=== PATIENT | female | born 1935 | race Caucasian/White ===

== ENCOUNTER 2018-12-29 11:57 | Emergency (ER) | payer BC ==
[~2018-12-29] VITALS: Ht 157.5 cm; Wt 72.6 kg
--- NOTE | 2018-12-29 12:03 | NUR ---
Pt. ambulated into ED w/ c/o unrelenting epistaxis x 20 min., pt. on Xeralto 15mg daily for A-fib., A/Ox4, RR even and unlabored, speaks in clear and complete sentences, at bedside, bed in low position,
--- NOTE | 2018-12-29 12:08 | NUR ---
at bedside for MSE
--- NOTE | 2018-12-29 12:19 | NUR ---
Nose clamp applied, yankeur suction provided, bleeding appears to be stopping w/ direct pressure w/ nose clamp,
--- NOTE | 2018-12-29 13:25 | NUR ---
Patient discharged to home in stable conditon. Written and verbal after care instructions given. Patient verbalizes understanding of instructions. Pt. d/c per MD order, d/c papers signed, all belongings w/ pt., ID band removed, ambulated off unit w/ shae gait, NAD
== END 2018-12-29 13:28 | disposition home or self-care (01) ==
LOC: ER 11:59
DX: R04.0 Epistaxis (principal); I48.91 Unspecified atrial fibrillation
CPT/HCPCS: 30901; A4663

== ENCOUNTER 2019-01-05 22:31 | Emergency (ER) | payer MEDICARE, BC ==
[~2019-01-05] VITALS: Ht 162.6 cm; Wt 62.6 kg
--- NOTE | 2019-01-05 22:42 | NUR ---
Patient ambulated with stable gait. A/Ox4. Speech is clear, speaks in complete sentences. 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 Patient was seen here about a week ago for the same issue. Patien is on Xarelto for treatment of aFib. Patient denies taking any new medication other than Doxycycline antibiotics prophylactically prior to cyst removal on her scalp. Respiratory even and unlabored, no cough no sob. No GI/ distress Patient in bed at lowst position sr upx2, call light within reach. Fall precautions implemented per protocol.
--- NOTE | 2019-01-05 22:51 | NUR ---
ERMD at bedside for MSE
--- NOTE | 2019-01-05 23:27 | NUR ---
Patient discharged to home in stable conditon. Written and verbal after care instructions given. Patient verbalizes understanding of instructions. Patient ambulated with stable gait.
== END 2019-01-05 23:38 | disposition home or self-care (01) ==
LOC: ER 22:33
DX: R04.0 Epistaxis (principal); I48.91 Unspecified atrial fibrillation
CPT/HCPCS: A4663

== ENCOUNTER 2019-02-15 10:03 | Emergency (ER) | payer MEDICARE, BC ==
[~2019-02-15] VITALS: Ht 162.6 cm; Wt 63.5 kg
--- NOTE | 2019-02-15 10:12 | NUR ---
in room 2b, c/o nose bleeding since 1 hour ago
--- NOTE | 2019-02-15 10:14 | NUR ---
seen by dr Todd
--- NOTE | 2019-02-15 10:26 | NUR ---
ice pack applied over the nose.
[2019-02-15 10:59] VITALS: BP 116/72
--- NOTE | 2019-02-15 11:00 | NUR ---
exitcare and homegoing instructions given and signed by patient. discharged. family with patient
== END 2019-02-15 11:01 | disposition home or self-care (01) ==
LOC: ER 10:07
DX: R04.0 Epistaxis (principal); I48.91 Unspecified atrial fibrillation
CPT/HCPCS: A4663

== ENCOUNTER 2020-02-04 11:33 | Inpatient (IN) | payer MEDICARE, BC ==
[~2020-02-04] VITALS: Ht 162.6 cm; Wt 62.1 kg
--- NOTE | 2020-02-04 11:50 | NUR ---
Dr. Love at bedside for MSE
--- NOTE | 2020-02-04 11:55 | NUR ---
Patient ambulating with steady gait. A&O x4. c/o head inury s/p GLF. patient states that she was gardening and turned faster than expected and fell and hit her head on a pale. some swelling noted above left eye and discoloration on the nose. Speech is clear and able to make needs known / follow commands. Breathing even and unlabored. no cough or SOB noted. denies any CP, N / V /D, CU[place], Blurred vision. safety precautions implemented, bed low, s/r up x2
[2020-02-04] MEDS ORDERED: METO-356 PO (12:04)
[2020-02-04] MEDS ORDERED: LEVO100T PO (12:04)
[2020-02-04] MEDS ORDERED: VITAMIN D3 (12:04)
[2020-02-04] MEDS ORDERED: CALC-1026 PO (12:04)
[2020-02-04] MEDS ORDERED: FISH OIL (12:04)
[2020-02-04] MEDS ORDERED: PRAV10TA40 PO (12:04)
[2020-02-04] MEDS ORDERED: RIVA10TA PO (12:04)
[2020-02-04] MEDS ORDERED: ACETAMINOPHEN ES 500 MG TABLET PO ONE (12:15)
[2020-02-04 12:24] LABS: BASOPHILS % (AUTO) 0.5 % (0.0-2.0); EOSINOPHILS # (AUTO) 0.1 K/uL (0.0-0.7); EOSINOPHILS % (AUTO) 0.9 % (0.0-7.0); HEMATOCRIT 41.5 % (31.2-41.9); HEMOGLOBIN 13.6 g/dL (10.9-14.3); LYMPHOCYTES # (AUTO) 1.7 K/uL (20.0-40.0); LYMPHOCYTES % (AUTO) 23.4 % (20.5-51.5); MEAN CORPUSCULAR HEMOGLOBIN 28.4 uug (24.7-32.8); MEAN CORPUSCULAR HGB CONC 33 g/dL (32.3-35.6); MONOCYTES # (AUTO) 0.5 K/uL (2.0-10.0); MONOCYTES % (AUTO) 7.3 % (0.0-11.0); NEUTROPHILS % (AUTO) 67.9 % (38.5-71.5); PLATELET COUNT (AUTO) 197 K/uL (179-408); RED BLOOD CELL COUNT(AUTO) 4.77 MIL/uL (3.63-4.92); WHITE BLOOD COUNT (AUTO) 7.3 K/uL (3.8-11.8)
[2020-02-04] MEDS ORDERED: ACETAMINOPHEN ES 500 MG TABLET ONE (12:25)
--- NOTE | 2020-02-04 12:27 | NUR ---
Patient taken to CT scan in stable condition
[2020-02-04 12:34] LABS: CREATININE 0.9 mg/dL (0.6-1.3); POTASSIUM 4.2 mmol/L (3.5-5.1)
[2020-02-04 12:46] LABS: BILIRUBIN,DIRECT 0.2 mg/dL (0.0-0.2); BILIRUBIN,TOTAL 0.8 mg/dL (0.2-1.0); TOTAL PROTEIN, SERUM 7.1 g/dL (6.4-8.2)
--- NOTE | 2020-02-04 13:39 | NUR ---
Pt. admitted to [facility] , under care of Dr. Morris Wu Belongs List completed
[2020-02-04] MEDS ORDERED: ZOLPIDEM 5 MG TABLET PO PRN (14:15)
[2020-02-04] MEDS ORDERED: ONDANSETRON 4 MG/2 ML VIAL IV PRN (14:15)
[2020-02-04] MEDS ORDERED: HYDROCODONE/APAP 5-325MG TABLET PO PRN (14:15)
[2020-02-04] MEDS ORDERED: Z GUARD REMEDY PASTE 57 GM TUBE TOP PRN (14:15)
[2020-02-04] MEDS ORDERED: MAGNESIUM HYDROXIDE 30 ML LIQUID UDC PO PRN (14:15)
[2020-02-04] MEDS ORDERED: ACETAMINOPHEN 325 MG TABLET PO PRN (14:15)
[2020-02-04] MEDS ORDERED: IV LACTATED RINGERS SOLUTION 1,000 ML IV PRN (14:45)
[2020-02-04 15:57] VITALS: BP 131/83
[2020-02-04] MEDS ORDERED: METOPROLOL SUCCINATE XL 25 MG TAB.SR.24H PO SCH (17:00)
[2020-02-04] MEDS: IV LACTATED RINGERS SOLUTION 1,000 ML IV SCH (18:45)
--- NOTE | 2020-02-04 20:00 | NUR ---
Received patient awake and alert in bed, no signs of acute distress noted. Patient is A/Ox4. IVF running on the left forearm, no s/s of infection or infiltration. Noted patient with bruising and swelling to the left side of the face s/p fall. No complaints of pain at this time. Vitals WNL. Safety measures initiated. Bed is low and locked, call light within reach. Will continue to monitor.
[2020-02-04 20:15] VITALS: BP 126/66
[2020-02-04] MEDS: METOPROLOL TARTRATE 25 MG TABLET PO SCH (20:33)
[2020-02-04] MEDS: RIVAROXABAN 15 MG TABLET PO SCH (21:00)
[2020-02-04] MEDS: ATORVASTATIN 10 MG TABLET PO SCH (21:00)
[2020-02-04] MEDS ORDERED: ATORVASTATIN 10 MG TABLET PO SCH (21:00)
[2020-02-04] MEDS ORDERED: RIVAROXABAN 10 MG TABLET PO SCH (21:00)
--- NOTE | 2020-02-04 21:10 | NUR ---
Patient says she take pravastatin. Medication was converted to atorvastatin, explained that it has the same effects, but patient said she has never taken it before and does not want to risk any side effects because when she used to be on 10mg of pravastatin she would have muscle spasms so it was decreased to 5mg, the atorvastatin is also 5mg, but she still does not want to take it. Also, xarelto was held, endorsed to Morris Wu DNP, that head CT was neg for hemorrhage, but patient noted with swelling and bruising to both sides of the face, patient stated it was initially only on one side so the decision was made to hold tonight dose and resume tmw.
[2020-02-05 00:06] VITALS: BP 126/78
[2020-02-05 05:56] LABS: BASOPHILS % (AUTO) 0.6 % (0.0-2.0); EOSINOPHILS # (AUTO) 0.1 K/uL (0.0-0.7); EOSINOPHILS % (AUTO) 1.4 % (0.0-7.0); HEMATOCRIT 42.4 % (31.2-41.9); LYMPHOCYTES # (AUTO) 2.5 K/uL (20.0-40.0); LYMPHOCYTES % (AUTO) 40.3 % (20.5-51.5); MEAN CORPUSCULAR HEMOGLOBIN 28.9 uug (24.7-32.8); MEAN CORPUSCULAR HGB CONC 33 g/dL (32.3-35.6); MEAN CORPUSCULAR VOLUME 87.5 fL (75.5-95.3); MONOCYTES # (AUTO) 0.6 K/uL (2.0-10.0); MONOCYTES % (AUTO) 9.7 % (0.0-11.0); PLATELET COUNT (AUTO) 188 K/uL (179-408); RED BLOOD CELL COUNT(AUTO) 4.85 MIL/uL (3.63-4.92); WHITE BLOOD COUNT (AUTO) 6.3 K/uL (3.8-11.8)
[2020-02-05 06:13] LABS: CREATININE 0.9 mg/dL (0.6-1.3); MAGNESIUM 2.1 mg/dL (1.8-2.4); PHOSPHOROUS 3.4 mg/dL (2.5-4.9)
[2020-02-05] MEDS: PANTOPRAZOLE SODIUM 40 MG TABLET.DR PO SCH (06:18)
[2020-02-05 06:20] LABS: THYROID STIMULATING HORMONE 1.939 mIU/mL (0.358-3.740)
[2020-02-05] MEDS: LEVOTHYROXINE SODIUM 100 MCG TABLET PO SCH (06:20)
[2020-02-05 06:26] VITALS: BP_SYST 145; BP_SYST 148; BP_SYST 153; BP_DIAS 107; BP_DIAS 81; BP_DIAS 82
[2020-02-05 08:00] VITALS: BP 143/88
[2020-02-05] MEDS: METOPROLOL TARTRATE 25 MG TABLET PO SCH ×2 (08:23→21:04)
[2020-02-05 15:11] VITALS: BP 138/77
[2020-02-05 15:36] LABS: *BILIRUBIN,URIN NEGATIVE (NEGATIVE); *BLOOD, URINE NEGATIVE (NEGATIVE); *CLARITY,URINE CLEAR (CLEAR); *COLOR,URINE YELLOW (YELLOW); *KETONES,URINE NEGATIVE (NEGATIVE); *UROBILINOGEN,URINE 0.2 E.U./dl (NORMAL); LEUKOCYTE ESTERASE ,URINE TRACE (NEGATIVE); NITRITE, URINE NEGATIVE (NEGATIVE); PH,URINE 6.5 (5.0-8.0); UGLUCOSE NEGATIVE (NEGATIVE)
[2020-02-05] MEDS: IV LACTATED RINGERS SOLUTION 1,000 ML IV SCH (17:16)
[2020-02-05 17:34] LABS: SQUAMOUS EPITHELIAL CELL,UR FEW /HPF (NONE SEEN)
--- NOTE | 2020-02-05 20:01 | NUR ---
Received patient resting in bed, easily to arouse. No signs of acute distress noted. No complaints of pain or SOB at this time. Heplock on the right Ac is intact and patent. Patient ambulatory with steady gait. Swelling has gone down since last night. Bruising still noted to left and right side of face. Repeat head CT was negative for any bleeding, will resume Xarelto tonight. Safety measures initiated. Bed is low and locked, call light within reach. Will continue to monitor.
[2020-02-05 20:09] VITALS: BP 125/74
[2020-02-05] MEDS: ATORVASTATIN 10 MG TABLET PO SCH (21:00)
[2020-02-05] MEDS: RIVAROXABAN 15 MG TABLET PO SCH (21:05)
[2020-02-06 00:03] VITALS: BP 124/67
[2020-02-06 04:12] VITALS: BP 137/84
[2020-02-06] MEDS: LEVOTHYROXINE SODIUM 100 MCG TABLET PO SCH (06:15)
[2020-02-06] MEDS: PANTOPRAZOLE SODIUM 40 MG TABLET.DR PO SCH (06:15)
[2020-02-06 07:22] LABS: POTASSIUM 4.2 mmol/L (3.5-5.1)
--- NOTE | 2020-02-06 07:30 | NUR ---
Received pt in bed awake, AOx4 on RA with no SOB or distress noted at this time. Facial bruising and hematoma noted but no complaints of pain. IV on left FA 22g H/L flushed, intact and patent. Call light and belongings within reach. Bed locked in lowest position with siderails 2x up. Will monitor
[2020-02-06] MEDS: METOPROLOL TARTRATE 25 MG TABLET PO SCH (09:03)
--- NOTE | 2020-02-06 09:30 | NUR ---
facility technician Jacky informed RN that pt's HR was 130. Went to pt room, pt just lied down on bed from bathroom and stated she was walking around the room. No distress or pain noted and no complaints.
[2020-02-06 11:11] VITALS: BP 150/66
--- NOTE | 2020-02-06 12:40 | NUR ---
Pt left unit via wheelchair accompanied by Rosalee GREER. DC forms and belongings list signed, all accounted for. DC instructions given and pt verbalized understanding. IV site and ID band removed. Facial bruising still noted, pics taken and placed in chart. No other issues or complaints upon discharge.
== END 2020-02-06 12:40 | disposition home or self-care (01) | DRG 74 ==
LOC: ER 11:33 → TELE3 13:43
PROVIDERS: ADMIT Nurse Practitioner Acute Care; ATTEND Nurse Practitioner Acute Care
DX: G90.8 Other disorders of autonomic nervous system (principal); I48.20 Chronic atrial fibrillation, unspecified; Z79.01 Long term (current) use of anticoagulants; E03.9 Hypothyroidism, unspecified; E78.5 Hyperlipidemia, unspecified; I25.10 Atherosclerotic heart disease of native coronary artery without angina pectoris; S00.12XA Contusion of left eyelid and periocular area, initial encounter; I10 Essential (primary) hypertension; Z92.3 Personal history of irradiation; R79.89 Other specified abnormal findings of blood chemistry; H90.5 Unspecified sensorineural hearing loss; Z98.890 Other specified postprocedural states; E86.9 Volume depletion, unspecified; E86.0 Dehydration; I95.1 Orthostatic hypotension; D64.9 Anemia, unspecified; I07.1 Rheumatic tricuspid insufficiency; W01.0XXA Fall on same level from slipping, tripping and stumbling without subsequent striking against object, initial encounter; Y93.H2 Activity, gardening and landscaping; Z85.22 Personal history of malignant neoplasm of nasal cavities, middle ear, and accessory sinuses; Y92.017 Garden or yard in single-family (private) house as the place of occurrence of the external cause
CPT/HCPCS: 36415; 70450; 71045; 72125; 83735; 84100; 84443; 85025; 85730; 87086; 93005; 93307; A4663; A9150; G0378; J7120

== ENCOUNTER 2022-04-20 08:06 | Inpatient (IN) | payer MEDICARE, BC ==
[~2022-04-20] VITALS: Ht 162.6 cm; Wt 63.7 kg
[~2022-04-20 08:06] MED LIST: CALC-1026 PO; FISH OIL; LEVO100T PO; METO-356 PO; PRAV10TA40 PO; RIVA10TA PO; VITAMIN D3
--- NOTE | 2022-04-20 08:21 | NUR ---
DR LOCKHART AT BEDSIDE FOR EVALUATION.
[2022-04-20] MEDS ORDERED: METO-356 PO (08:28)
[2022-04-20 08:37] LABS: HEMATOCRIT 40.1 % (31.2-41.9); MEAN CORPUSCULAR HEMOGLOBIN 28.8 uug (24.7-32.8); MEAN CORPUSCULAR VOLUME 86.5 fL (75.5-95.3); PLATELET COUNT (AUTO) 203 K/uL (179-408)
[2022-04-20 08:46] LABS: CREATININE 0.8 mg/dL (0.6-1.3); POTASSIUM 4.3 mmol/L (3.5-5.1)
[2022-04-20 08:51] LABS: BILIRUBIN,DIRECT 0.2 mg/dL (0.0-0.2); BILIRUBIN,TOTAL 0.9 mg/dL (0.2-1.0); TOTAL PROTEIN, SERUM 6.7 g/dL (6.4-8.2)
--- NOTE | 2022-04-20 08:52 | NUR ---
Patient taken for CT scan.
[2022-04-20 08:59] LABS: THYROID STIMULATING HORMONE 1.573 mIU/mL (0.358-3.740)
--- NOTE | 2022-04-20 09:12 | NUR ---
Patient back from CT scan.
--- NOTE | 2022-04-20 09:35 | NUR ---
Informed physician of patient's iodine allergy. Per MD, patient will not be taken for CTA brain and CTA carotid.
[2022-04-20] MEDS ORDERED: ENOXAPARIN SODIUM 40 MG/0.4 ML DISP.SYRIN SQ SCH (11:15)
[2022-04-20] MEDS ORDERED: METO25TA6 PO ×2 (11:41→11:42)
[2022-04-20] MEDS ORDERED: METO50TA16 PO ×2 (11:41→11:42)
[2022-04-20] MEDS ORDERED: LEVOTHYROXINE SODIUM 100 MCG TABLET PO SCH (12:00)
[2022-04-20] MEDS ORDERED: METOPROLOL TARTRATE 50 MG TABLET PO SCH (12:00)
[2022-04-20] MEDS ORDERED: METOPROLOL TARTRATE 50 MG TABLET ONE (12:19)
[2022-04-20] MEDS ORDERED: ASPIRIN EC 81 MG TABLET.DR PO ONE (12:19)
[2022-04-20] MEDS: ASPIRIN EC 81 MG TABLET.DR PO SCH (12:19)
[2022-04-20] MEDS ORDERED: LEVOTHYROXINE SODIUM 100 MCG TABLET ONE (12:19)
--- NOTE | 2022-04-20 14:01 | NUR ---
Social work consult was requested in the emergency room for a patient who possibly experienced a stroke. Patient is 87-year-old female. Patient is alert and oriented X4. Patient presents with anxious mood and congruent affect. Patient presents with good judgement and insight. Patient primary contact is her , Dom Joseph ([phone]) and they have a good relationship. Patient lives with her , Dom, and daughter, Promise ([phone]) at [id number], [place] [address]. Patient does not have home health services, is not driving, and has a walker at home. Patient is currently retired. Patient denies a history of substance abuse. Patient denied a history of psychiatric diagnosis. JOSE M completed a PHQ 9 Screening with the patient, and she scored a 2. Patient states she has had trouble sleeping for two days because she wakes up every hour to use the restroom to urinate. JOSE M offered the patient resources for post stroke depression and the patient refused. JOSE M placed the resources in the patients chart. Patient denies suicidal or homicidal ideation. Patient states she is open to going home to [id number], [place] [address] with home health. This JOSE M will follow up with [employer] immigration case worker who follow up with the discharge plan when patient is admitted to telemetry. Addendum: 04/20/22 at 1454 by AMBROSE SALGUERO JOSE M provided the patient with resource on how to apply for ACCESS and placed the resource in the patient's chart. JOSE M provided the patient with resources for home health services from [facility] ([phone]) and [facility] ([phone]) and placed the resources in the patient's chart.
--- NOTE | 2022-04-20 15:43 | NUR ---
TEXTED DR. ODEN FOR MRI APPROVAL.
--- NOTE | 2022-04-20 19:10 | NUR ---
Admitted this 87 y/o female from ER via gurney, awake alert and oriented x3. In no acute distress, denies chest pain. A. fib on tele with HR of 75bpm. Skin assessment done. Left AC IV intact and patent. Routine admission care done, plan of care initiated. Due meds given. Needs assessed and attended to. Call light placed within easy reach.
[2022-04-20] MEDS: METOPROLOL TARTRATE 25 MG TABLET PO SCH (20:26)
[2022-04-20] MEDS: RIVAROXABAN 15 MG TABLET PO SCH (20:27)
[2022-04-20 20:41] VITALS: BP 147/95
[2022-04-20] MEDS ORDERED: METOPROLOL SUCCINATE XL 25 MG TAB.SR.24H PO SCH (21:00)
[2022-04-20] MEDS ORDERED: ATORVASTATIN 10 MG TABLET PO SCH (21:00)
[2022-04-20] MEDS: PRAVASTATIN 10 MG PO SCH (21:02)
[2022-04-20] MEDS: [UNRECOGNIZED DRUG - OTHER] PO SCH (21:02)
[2022-04-21] VITALS: BP 146/90
[2022-04-21 04:00] VITALS: BP 150/94
[2022-04-21 06:14] LABS: HEMATOCRIT 43.4 % (31.2-41.9); MEAN CORPUSCULAR HEMOGLOBIN 28.6 uug (24.7-32.8); MEAN CORPUSCULAR VOLUME 85.5 fL (75.5-95.3); PLATELET COUNT (AUTO) 205 K/uL (179-408)
[2022-04-21] MEDS: LEVOTHYROXINE SODIUM 100 MCG TABLET PO SCH (06:16)
[2022-04-21 06:24] LABS: CREATININE 0.8 mg/dL (0.6-1.3); POTASSIUM 4.2 mmol/L (3.5-5.1)
--- NOTE | 2022-04-21 08:00 | NUR ---
AWAKE ALERT AND ORIENTED X3, NO SS OF PAIN OR DISTRESS, SR/ST ON MONITOR
[2022-04-21] MEDS ORDERED: METOPROLOL SUCCINATE XL 25 MG TAB.SR.24H PO SCH (09:00)
[2022-04-21] MEDS: CALCIUM CARBONATE 500 MG TABLET PO SCH (09:09)
[2022-04-21] MEDS: ASPIRIN EC 81 MG TABLET.DR PO SCH (09:09)
[2022-04-21] MEDS: METOPROLOL TARTRATE 50 MG TABLET PO SCH (09:11)
--- NOTE | 2022-04-21 10:00 | NUR ---
SEEN BY PHYSICAL THERAPIST FOR EVAL AND TX, SEE NOTES. BP AND HR TENDS TO GO UP ON AMBULATION CONTINUE TELEMETRY STATUS
--- NOTE | 2022-04-21 10:59 | NUR ---
to sonia ramirez for mri brain via ambulance
--- NOTE | 2022-04-21 12:13 | NUR ---
BACK FROM MRI AWAKE ALERT AND ORIENTED X3. NO ACUTE CHANGE FROM MORNING ASSESSMENT
[2022-04-21 13:26] VITALS: BP 142/89
[2022-04-21] MEDS: RIVAROXABAN 15 MG TABLET PO SCH (16:49)
--- NOTE | 2022-04-21 20:00 | NUR ---
rounds made patient in bed AAOX4.MAEX4 . denies any pain ,no respiratory distress noted on room air . patient is very pleasant and verbalized she will be going home tomorrow .she said her is going to chemotherapy on Sunday and she wants to be there for him .advised patient to wait and checked with her doctor in the morning . she might be able to go home if everything is fine .patient also verbalized that is is waiting for the neurologist to see her , advised that i will follow it up in am since its already late for the doctor to see her .
[2022-04-21] MEDS: PRAVASTATIN 10 MG PO SCH (20:23)
[2022-04-21] MEDS: [UNRECOGNIZED DRUG - OTHER] PO SCH (20:23)
[2022-04-21] MEDS: METOPROLOL TARTRATE 25 MG TABLET PO SCH (20:25)
--- NOTE | 2022-04-22 01:40 | NUR ---
patient called complaining of heartburn ,she felt air running from her left side of her breast to her right side of the back to her stomach . assisted patient to the bathroom ,voided and pass some gas .escorted back to bed .
--- NOTE | 2022-04-22 01:50 | NUR ---
given Maalox for the heartburn , patient wants to walk around so that she can pass more gas . ambulated patient to the hallway hand held assist then back to back . call light placed with in reach and advised to call for assitance and not to get oob alone .
[2022-04-22] MEDS: MAG HYDROX/AL HYDROX/SIMETH 30 ML LIQUID UDC PO PRN ×2 (01:55→10:23)
--- NOTE | 2022-04-22 05:24 | NUR ---
patient called and escorted patient to the bathroom,able to walk hand held assist to the bathroom ,voided .
[2022-04-22] MEDS: LEVOTHYROXINE SODIUM 100 MCG TABLET PO SCH ×2 (06:07→06:31)
--- NOTE | 2022-04-22 06:31 | NUR ---
patient refused Synthroid as per patient she dont take Synthroid during weekends no Sunday no Sunday only Sunday to Sunday .
--- NOTE | 2022-04-22 08:00 | NUR ---
AWAKE ALERT AND ORIENTED X3, DENIES CHEST PAIN OR RESPIRATORY DIST SR ON MONITOR
[2022-04-22] MEDS: ASPIRIN EC 81 MG TABLET.DR PO SCH (09:05)
[2022-04-22 09:06] VITALS: BP 132/78
[2022-04-22] MEDS: METOPROLOL TARTRATE 50 MG TABLET PO SCH (09:06)
[2022-04-22] MEDS: CALCIUM CARBONATE 500 MG TABLET PO SCH (10:23)
--- NOTE | 2022-04-22 12:53 | NUR ---
SEEN BY DR ORTEGA WITH DISCHARGE ORDER FOR HOME HOME. PATIENT MEDICATION AND FOLLOW-UP INSTRUCTION GIVEN. FAMILY WILL BE AVAILABLE FOR PICK-UP AT 1500
--- NOTE | 2022-04-22 15:54 | NUR ---
discharged home stable accompanied by daughter
== END 2022-04-22 15:55 | disposition home or self-care (01) | DRG 55 ==
LOC: ER 08:06 → TRANSITION 11:23 → TELE3 18:27 → MEDSURG3 04-22 10:45
DX: D33.3 Benign neoplasm of cranial nerves (principal); D68.69 Other thrombophilia; I48.91 Unspecified atrial fibrillation; E03.9 Hypothyroidism, unspecified; Z20.822 Contact with and (suspected) exposure to COVID-19; I10 Essential (primary) hypertension; E78.5 Hyperlipidemia, unspecified; Z91.041 Radiographic dye allergy status; Z79.890 Hormone replacement therapy; Z79.01 Long term (current) use of anticoagulants; R53.1 Weakness; R20.0 Anesthesia of skin; R26.81 Unsteadiness on feet
CPT/HCPCS: 36415; 70450; 70551; 71045; 84443; 85025; 85730; 93005; 93307; 93880; 97161; G0378

== ENCOUNTER 2022-06-07 09:08 | Emergency (ER) | payer MEDICARE, BC ==
[~2022-06-07] VITALS: Ht 162.6 cm; Wt 65.8 kg
[~2022-06-07 09:08] MED LIST changes: -METO-356 PO; +METO25TA6 PO; +METO50TA16 PO
[2022-06-07] MEDS ORDERED: IV NS 1000 ML 1,000 ML IV ONE (09:30)
[2022-06-07 09:56] LABS: HEMATOCRIT 40.7 % (31.2-41.9); MEAN CORPUSCULAR HEMOGLOBIN 29.2 uug (24.7-32.8); MEAN CORPUSCULAR VOLUME 86.3 fL (75.5-95.3); PLATELET COUNT (AUTO) 235 K/uL (179-408)
[2022-06-07 10:03] LABS: *BILIRUBIN,URIN NEGATIVE (NEGATIVE); *CLARITY,URINE CLEAR (CLEAR); *COLOR,URINE YELLOW (YELLOW); *KETONES,URINE NEGATIVE (NEGATIVE); *UROBILINOGEN,URINE 0.2 E.U./dl (NORMAL); LEUKOCYTE ESTERASE ,URINE TRACE (NEGATIVE); NITRITE, URINE NEGATIVE (NEGATIVE); UGLUCOSE NEGATIVE (NEGATIVE)
[2022-06-07 10:24] LABS: *BLOOD, URINE TRACE (NEGATIVE)
[2022-06-07 10:26] LABS: CARBON DIOXIDE 27 mmol/L (21-32); CHLORIDE 98 mmol/L (98-107); CREATININE 0.9 mg/dL (0.6-1.3); GLUCOSE 98 mg/dL (74-106); UREA NITROGEN, BLOOD 17 mg/dL (7-18)
[2022-06-07 10:34] LABS: ALANINE AMINOTRANSFERASE 29 U/L (14-59); ALKALINE PHOSPHATASE 54 U/L (50-136); ASPARTATE AMINOTRANSFERASE 14 U/L (15-37); BILIRUBIN,DIRECT 0.2 mg/dL (0.0-0.2); BILIRUBIN,TOTAL 1.1 mg/dL (0.2-1.0); TOTAL PROTEIN, SERUM 6.6 g/dL (6.4-8.2)
[2022-06-07 10:41] LABS: BACTERIA,URINE NONE SEEN /HPF (NONE SEEN); RBC,URINE 0-3 /HPF (0-3); SQUAMOUS EPITHELIAL CELL,UR FEW /HPF (NONE SEEN); WBC,URINE 0-3 /HPF (0-3)
== END 2022-06-07 12:25 | disposition home or self-care (01) ==
LOC: ER 09:08
DX: R53.1 Weakness (principal); I48.91 Unspecified atrial fibrillation; E03.9 Hypothyroidism, unspecified; Z79.01 Long term (current) use of anticoagulants; I10 Essential (primary) hypertension; Z79.899 Other long term (current) drug therapy
CPT/HCPCS: 99285; 96360; 70450; 96361; 80076; 80048; 81001; 85025; 84484; 36415; 93005; J7040; A4663